=== PATIENT | male | born 1945 | race Caucasian/White ===

== ENCOUNTER 2016-09-08 09:53 | Outpatient (CLI) | payer MEDICARE, OTHER ==
[2015-03-31 09:25] VITALS: BP 179/96
== END 2016-09-08 09:54 ==
LOC: POD 09:53
PROVIDERS: ATTEND Podiatrist Public Medicine
DX: E11.9 Type 2 diabetes mellitus without complications (principal); B35.1 Tinea unguium; L60.0 Ingrowing nail; M79.674 Pain in right toe(s); M79.675 Pain in left toe(s)
CPT/HCPCS: 11721; G0463

== ENCOUNTER 2016-11-24 10:41 | Outpatient (CLI) | payer MEDICARE, OTHER ==
[2015-03-31 09:25] VITALS: BP 179/96
[2016-11-24 11:07] LABS: APPEARANCE,URINE Clear (CLEAR); COLOR,URINE Yellow (YELLOW); OCCULT BLOOD,URINE Negative (NEGATIVE); PH URINE 5.5 (5.0 - 8.0)
[2016-11-24 11:08] LABS: BASOPHILS % 0.7 (0.0-1.5); EOSINOPHILS % 3.9 % (0.0-6.8); MEAN CORPUSCULAR HEMOGLOBIN 31.1 pg (28.0-34.0); MEAN CORPUSCULAR VOLUME 91.1 fl (80.0-100.0); MONOCYTES % 5.2 % (0.0-11.0); NEUTROPHILS # 4.1 # k/uL (1.4-7.7)
[2016-11-24 11:25] LABS: eGFR (African) > 60; eGFR (Non-African) > 60
== END 2016-11-24 10:42 ==
LOC: LAB 10:41
PROVIDERS: ATTEND Nurse Practitioner Family
DX: E11.59 Type 2 diabetes mellitus with other circulatory complications (principal); E78.2 Mixed hyperlipidemia; I10 Essential (primary) hypertension
CPT/HCPCS: 36415; 80053; 80061; 81002; 83036; 84443; 85025

== ENCOUNTER 2016-12-29 11:11 | Outpatient (CLI) | payer MEDICARE, OTHER ==
[2015-03-31 09:25] VITALS: BP 179/96
== END 2016-12-29 11:12 ==
LOC: POD 11:11
PROVIDERS: ATTEND Podiatrist Public Medicine
DX: B35.1 Tinea unguium (principal); E11.9 Type 2 diabetes mellitus without complications; L60.0 Ingrowing nail; M79.674 Pain in right toe(s); M79.675 Pain in left toe(s)
CPT/HCPCS: 11721; G0463

== ENCOUNTER 2017-03-30 10:17 | Outpatient (CLI) | payer MEDICARE, OTHER ==
[2015-03-31 09:25] VITALS: BP 179/96
== END 2017-03-30 10:18 ==
LOC: POD 10:17
PROVIDERS: ATTEND Podiatrist Public Medicine
DX: B35.1 Tinea unguium (principal); M79.674 Pain in right toe(s); M79.675 Pain in left toe(s); L60.0 Ingrowing nail; E11.9 Type 2 diabetes mellitus without complications
CPT/HCPCS: 11721; G0463

== ENCOUNTER 2017-06-21 11:58 | Outpatient (CLI) | payer MEDICARE, OTHER ==
[2015-03-31 09:25] VITALS: BP 179/96
[2017-06-21 12:22] LABS: BASOPHILS % 0.7 (0.0-1.5); EOSINOPHILS % 1.4 % (0.0-6.8); MEAN CORPUSCULAR HEMOGLOBIN 31.5 pg (28.0-34.0); MEAN CORPUSCULAR VOLUME 92.7 fl (80.0-100.0); MONOCYTES % 4.8 % (0.0-11.0); NEUTROPHILS # 5.8 # k/uL (1.4-7.7)
[2017-06-21 12:51] LABS: eGFR (African) > 60; eGFR (Non-African) > 60
== END 2017-06-21 12:00 ==
LOC: LAB 11:58
PROVIDERS: ATTEND Nurse Practitioner Family
DX: I10 Essential (primary) hypertension (principal); E78.4 Other hyperlipidemia; E11.65 Type 2 diabetes mellitus with hyperglycemia; Z79.4 Long term (current) use of insulin
CPT/HCPCS: 36415; 80053; 80061; 83036; 85025

== ENCOUNTER 2017-06-29 10:41 | Outpatient (CLI) | payer MEDICARE, OTHER ==
[2015-03-31 09:25] VITALS: BP 179/96
== END 2017-06-29 11:00 ==
LOC: POD 10:41
PROVIDERS: ATTEND Podiatrist Public Medicine
DX: E11.9 Type 2 diabetes mellitus without complications (principal); B35.1 Tinea unguium; L60.0 Ingrowing nail; M79.674 Pain in right toe(s); M79.675 Pain in left toe(s)
CPT/HCPCS: 11721; G0463

== ENCOUNTER 2017-09-28 09:41 | Outpatient (CLI) | payer MEDICARE, OTHER ==
[2015-03-31 09:25] VITALS: BP 179/96
== END 2017-09-28 09:50 ==
LOC: POD 09:41
PROVIDERS: ATTEND Podiatrist Public Medicine
DX: E11.9 Type 2 diabetes mellitus without complications (principal); B35.1 Tinea unguium; L60.0 Ingrowing nail; M79.674 Pain in right toe(s); M79.675 Pain in left toe(s)
CPT/HCPCS: 11721; G0463

== ENCOUNTER 2017-11-01 16:30 | Outpatient (CLI) | payer MEDICARE, OTHER ==
[2015-03-31 09:25] VITALS: BP 179/96
== END 2017-11-01 16:32 ==
LOC: LABRHC 16:30
PROVIDERS: ATTEND Physician Assistant
DX: R10.9 Unspecified abdominal pain (principal)
CPT/HCPCS: 87086

== ENCOUNTER 2017-11-17 11:42 | Outpatient (CLI) | payer MEDICARE, OTHER ==
[2015-03-31 09:25] VITALS: BP 179/96
[2017-11-17 12:20] LABS: BASOPHILS % 0.3 (0.0-1.5); MEAN CORPUSCULAR HEMOGLOBIN 30.4 pg (28.0-34.0); MEAN CORPUSCULAR VOLUME 90.9 fl (80.0-100.0); MONOCYTES % 5.3 % (0.0-11.0); NEUTROPHILS # 4.2 # k/uL (1.4-7.7)
[2017-11-17 12:39] LABS: APPEARANCE,URINE Clear (CLEAR); COLOR,URINE Yellow (YELLOW); OCCULT BLOOD,URINE Negative (NEGATIVE)
[2017-11-17 12:40] LABS: eGFR (African) > 60; eGFR (Non-African) > 60
--- NOTE | 2017-11-17 18:32 | Diagnostic Imaging Report ---
SIRENA COELLO [facility] [id number] [facility] [address] [address] Report Submission Date: November 17, 2017 12:45:06 PM CDT Patient Study Name: JAN WILKERSON Date: November 17, 2017 11:47:47 AM CDT Modality Type: DX Gender: M Description: CHEST : 47 Institution: [facility] Physician: SIRENA COELLO Examination: PA and lateral chest. History: CXR, SOA AND FATIGUE FOR ABOUT 2 WEEKS (Hx) Comparison exam: None provided. Findings: PA lateral chest demonstrate a normal cardiac and mediastinal silhouette. No focal infiltrate. Tortuous aorta. No blunting of the costophrenic margins. Osseous structures are appropriate for age. Impression: No acute pulmonary process. Electronically signed on November 17, 2017 12:45:06 PM CDT by: Jon LARIOS
== END 2017-11-17 11:43 ==
LOC: LAB 11:42
PROVIDERS: ATTEND Physician Assistant
DX: R06.02 Shortness of breath (principal); R53.83 Other fatigue; R35.0 Frequency of micturition; M25.473 Effusion, unspecified ankle; E53.8 Deficiency of other specified B group vitamins
CPT/HCPCS: 36415; 71046; 80053; 81002; 82607; 82652; 83880; 84443; 85025

== ENCOUNTER 2017-12-28 09:39 | Outpatient (CLI) | payer MEDICARE, OTHER ==
[2015-03-31 09:25] VITALS: BP 179/96
== END 2017-12-28 09:40 ==
LOC: POD 09:39
PROVIDERS: ATTEND Podiatrist Public Medicine
DX: E11.9 Type 2 diabetes mellitus without complications (principal); B35.1 Tinea unguium; L60.0 Ingrowing nail; M79.674 Pain in right toe(s); M79.675 Pain in left toe(s)
CPT/HCPCS: 11721; G0463

== ENCOUNTER 2018-06-29 10:28 | Outpatient (CLI) | payer MEDICARE, OTHER ==
[2015-03-31 09:25] VITALS: BP 179/96
[2018-06-29 11:55] LABS: eGFR (Non-African) > 60
[2018-06-29 12:13] LABS: BASOPHILS % 0.5 (0.0-1.5); EOSINOPHILS % 2.8 % (0.0-6.8); MEAN CORPUSCULAR HEMOGLOBIN 29.6 pg (28.0-34.0); MONOCYTES % 6.1 % (0.0-11.0); NEUTROPHILS # 3.7 # k/uL (1.4-7.7)
== END 2018-06-29 14:22 ==
LOC: LAB 10:28
PROVIDERS: ATTEND Nurse Practitioner Family
DX: E11.9 Type 2 diabetes mellitus without complications (principal); I10 Essential (primary) hypertension; N40.1 Benign prostatic hyperplasia with lower urinary tract symptoms; Z11.59 Encounter for screening for other viral diseases
CPT/HCPCS: 36415; 80053; 80061; 82043; 83036; 84153; 85025; 86803

== ENCOUNTER 2018-09-21 10:55 | Outpatient (CLI) | payer MEDICARE, OTHER ==
[2015-03-31 09:25] VITALS: BP 179/96
== END 2018-09-21 11:05 ==
LOC: LAB 10:55
PROVIDERS: ATTEND Specialist
DX: E55.9 Vitamin D deficiency, unspecified (principal); E53.9 Vitamin B deficiency, unspecified; G62.9 Polyneuropathy, unspecified; R41.3 Other amnesia; Z79.899 Other long term (current) drug therapy; Z13.21 Encounter for screening for nutritional disorder
CPT/HCPCS: 36415; 84425